=== PATIENT | female | born 1955 | race Caucasian/White ===

== ENCOUNTER 2020-08-09 16:30 | Emergency (ER) | payer MEDICARE ==
[2020-08-09] MEDS ORDERED: Proparacaine 0.5% Ophth Soln 15 ML Bottle EYEBOTH STA (16:40)
--- NOTE | 2020-08-09 17:03 | EDM.PDOC ---
ED HPI GENERAL MEDICAL PROBLEM - General Chief Complaint: Eye Problems Stated Complaint: SAWDUST INLEFT EYE ? Time Seen by Provider: 08/09/20 16:50 Source of Information: Reports: Patient, Family, RN Notes Reviewed History Limitations: Reports: No Limitations - History of Present Illness INITIAL COMMENTS - FREE TEXT/NARRATIVE: 65-year-old female presents emergency department today with complaint of possible sawdust in her left eye, she was cutting wood earlier today as a foreign body sensation, no problems with vision - Related Data Allergies Allergy/AdvReac Type Severity Reaction Status Date / Time No Known Allergies Allergy Verified 08/09/20 16:53 Home Meds: Home Meds Montelukast [Singulair] 1 tab PO DAILY 08/09/20 [History] atorvaSTATin [Lipitor] 1 tab PO DAILY 08/09/20 [History] Past Medical History Cardiovascular History: Reports: High Cholesterol, Hypertension Social & Family History - Tobacco Use Tobacco Use Status *Q: Never Tobacco User ED ROS GENERAL - Review of Systems Review Of Systems: See Below Constitutional: Reports: No Symptoms HEENT: Reports: Eye Discharge, Eye Pain. Denies: Vision Change ED EXAM GENERAL W FULL EYE - Physical Exam Exam: See Below Exam Limited By: No Limitations General Appearance: Alert, WD/WN, No Apparent Distress Eye Exam: Right Eye: Normal Inspection, Left Eye: Foreign Body (No foreign body found), Bilateral Eye: EOMI, PERRL Eyelids: Bilateral: Normal Appearance Conjunctiva & Sclera: Left: Foreign Body (None found) Cornea Exam: Left: Corneal Abrasion (Under fluorescein stain) Extraocular Movements: Bilateral: Intact Pupillary Size: Bilateral: 4 mm Pupillary Reaction: Bilateral: Brisk Anterior Chamber: Bilateral: Normal Appearance Course - Orders/Labs/Meds Meds: Medications Discontinued Medications Generic Name Dose Route Start Last Admin Trade Name Freq PRN Reason Stop Dose Admin Proparacaine HCl 1 ml 08/09/20 16:40 Proparacaine 0.5% Ophth Soln 15 Ml Bottle EYEBOTH 08/09/20 16:41 NOW STA Departure - Departure Time of Disposition: 17:01 Disposition: Home, Self-Care 01 Condition: Fair Clinical Impression: Corneal abrasion, left Qualifiers: Encounter type: initial encounter Qualified Code(s): S05.02XA - Injury of conjunctiva and corneal abrasion without foreign body, left eye, initial encounter - Discharge Information Instructions: Corneal Abrasion, Eye Foreign Body, [id number] Referrals: PCP,None [Primary Care Provider] - Additional Instructions: Continue to use the erythromycin ophthalmic ointment until reevaluated by eye care provider on Tuesday, call or return to the emergency department worsening of symptoms - Assessment/Plan Plan: Assessment Acuity = acute Site and laterality = foreign body left eye Etiology = probable sawdust Manifestations = none Location of injury = Home Lab values = none Plan Tetanus is up-to-date, treated empirically with erythromycin ointment she will follow up with her eye care provider on Tuesday This note was dictated using [employer] voice recognition software please call with any questions on syntax or grammar.
== END 2020-08-09 17:14 | disposition home or self-care (01) ==
LOC: JP.ED 16:30
DX: S05.02XA Injury of conjunctiva and corneal abrasion without foreign body, left eye, initial encounter (principal); E78.00 Pure hypercholesterolemia, unspecified; I10 Essential (primary) hypertension; Z79.899 Other long term (current) drug therapy; X58.XXXA Exposure to other specified factors, initial encounter
CPT/HCPCS: 99283; A9270